=== PATIENT | female | born 1960 | race African-American/Black ===

== ENCOUNTER 2016-11-20 12:59 | Emergency (ER) | payer BC ==
[~2016-11-20] VITALS: Ht 165.1 cm; Wt 65.8 kg
[2016-11-20 13:04] VITALS: BP 118/97
--- NOTE | 2016-11-20 13:55 | ED.ADGEN ---
Past Medical History Past Medical History: Hypertension Past Surgical History: No Surgical History Alcohol Use: Occasionally Drug Use: None Adult General Chief Complaint Chief Complaint: CHOKING HPI HPI Patient is a 56 year old woman, who presents to the emergency department with a complaint of inability to swallow. Patient states that she was eating a hot dog, was taking a bite off of a fork, when a larger piece than intended came off , and slipped into her throat before she could chew. She states since that time she has been unable to swallow, patient is unable to speak much, is coughing, attempting to vomit, and retching in the ED. This occurred approximately 30 minutes prior to arrival in the ED. She denies any medical problems, any history of swallowing issues. No shortness of breath or chest pain. No preceding symptoms. Review of Systems Review of Systems Constitutional: Denies fever or chills. [] Eyes: Denies change in visual acuity. [] HENT: Denies nasal congestion or sore throat. [Unable to swallow. Coughing and retching. Respiratory: Denies cough or shortness of breath. [] Cardiovascular: Denies chest pain or edema. [] GI: Denies abdominal pain, nausea, vomiting, bloody stools or diarrhea. [] : Denies dysuria. [] Musculoskeletal: Denies back pain or joint pain. [] Integument: Denies rash. [] Neurologic: Denies headache, focal weakness or sensory changes. [] Endocrine: Denies polyuria or polydipsia. [] Lymphatic: Denies swollen glands. [] Psychiatric: Denies depression or anxiety. [] Allergies Allergies Allergies Coded Allergies Type Severity Reaction Last Updated Verified No Known Drug Allergies 11/20/16 No Physical Exam Physical Exam Constitutional: Well developed, well nourished, no acute distress, non-toxic appearance. [] HENT: Normocephalic, atraumatic, bilateral external ears normal, oropharynx moist, no oral exudates, nose normal. [] Eyes: PERRLA, EOMI, conjunctiva normal, no discharge. [] Neck: Normal range of motion, no tenderness, supple, no stridor. [] Cardiovascular:Heart rate regular rhythm, no murmur, S1, S2, no rubs or gallops. [] Lungs & Thorax: Bilateral breath sounds clear to auscultation, no wheezing, rhonchi, rales. No chest or crepitus or tenderness. [] Abdomen: Bowel sounds normal, soft, no tenderness, no masses, no rebound, rigidity, no guarding, no pulsatile masses. [] Neurologic: Alert and oriented X 3, normal motor function, normal sensory function, no focal deficits noted. [] Psychologic: Affect normal, judgement normal, mood normal. [] Current Patient Data Vital Signs Vital Signs Date Time Temp Pulse Resp B/P (MAP) Pulse Ox O2 Delivery O2 Flow Rate FiO2 11/20/16 13:04 97.6 112 24 118/97 (104) 99 Room Air 97.6 EKG EKG Not indicated. Radiology/Procedures Radiology/Procedures Not indicated. [] Course & Med Decision Making Course & Med Decision Making Pertinent Labs and Imaging studies reviewed. (See chart for details) Patient assessed, lexie tachycardic, oxygen saturation was 98% on room air, respiratory rate 18 and unlabored, with retching, with history consistent with a food bolus impaction. Preparing to give the patient easily gas in the emergency department, as patient is noted cardiac medications or concerning history. However, before it could be administered, patient stated that she was feeling better, and that she had cleared the piece of hot dog. She said that "I felt it go down". Patient with no further retching or discomfort in the ED, is now drinking water without issue, was observed in the ED for an additional 30 minutes without recurrence of symptoms or any other concerning things. I did discuss with patient concerning symptoms that would prompt return to the ED, importance of chewing carefully. Patient voiced understanding and agreement, discharged home in stable condition with family. Dragon Disclaimer Dragon Disclaimer This electronic medical record was generated, in whole or in part, using a voice recognition dictation system. Departure Impression: Primary Impression: Esophageal obstruction due to food impaction Disposition: 01 HOME, SELF-CARE Condition: IMPROVED TIFFANY VIGIL DO Nov 20, 2016 13:55
== END 2016-11-20 13:54 | disposition home or self-care (01) ==
LOC: ER 12:59
DX: T18.128A Food in esophagus causing other injury, initial encounter (principal); R00.0 Tachycardia, unspecified; I10 Essential (primary) hypertension; X58.XXXA Exposure to other specified factors, initial encounter; Y93.89 Activity, other specified; Y92.89 Other specified places as the place of occurrence of the external cause; Y99.8 Other external cause status
CPT/HCPCS: 99283